=== PATIENT | female | born 1970 | race Two or more races ===

== ENCOUNTER 2024-11-13 13:25 | Emergency (ER) | payer OTHER ==
[~2024-11-13] VITALS: Ht 162.6 cm; Wt 83.5 kg
[2024-11-13] MEDS ORDERED: SYNTHROID125 MCG PO (14:12)
[2024-11-13] MEDS ORDERED: EZALLOR SPRINKLE5 MG PO (14:12)
[2024-11-13] MEDS ORDERED: KETOROLAC TROMETHAMINE 60 MG VIAL IM ONE ×2 (14:15→14:16)
[2024-11-13] MEDS ORDERED: NAPROXEN500 MG PO (18:41)
== END 2024-11-13 20:44 | disposition home or self-care (01) ==
LOC: ER 13:25
DX: G89.11 Acute pain due to trauma (principal); M79.672 Pain in left foot